=== PATIENT | female | born 1970 | race Caucasian/White ===

== ENCOUNTER 2018-11-03 09:55 | Emergency (ER) | payer OTHER ==
[~2018-11-03] VITALS: Ht 167.6 cm; Wt 90.7 kg
--- NOTE | 2018-11-03 10:21 | ER.PDOC ---
General Chief Complaint: Requesting Medical Care Stated Complaint: ANXIETY Time seen by MD: 10:05 Source: patient Exam Limitations: no limitations History of Present Illness Initial Comments Pt in town from [place] visiting her ill father. Ran out of Xanax for panic disorder. Rescheduled appt with PCP for November 06, PCP reportedly put her Rx on hold until he sees her. Reports severe anxiety today after being out of meds for 1 day. Timing/Duration: yesterday Severity: moderate Context: above. No suicidal thoughts or intent. No Depression. Substance Ingested: N/A Rescue Factor: N/A Prior symptoms/Treatment: Similar symptoms previous, Recenly Seen, Treated by Doctor Past Medical History Medical History: other (Anxiety/Panic disorder) Review of Systems Constitutional: no symptoms reported EENTM: no symptoms reported Respiratory: no symptoms reported Cardiovascular: no symptoms reported Gastrointestinal: no symptoms reported Genitourinary: no symptoms reported Skin: no symptoms reported Psychiatric/Neurological: anxiety Physical Exam General Appearance: Moderate distress EENT: No nystagmus, PERRLA, EOM's intact, NML ENT inspection, Pharynx nml, NML gag reflex Neck: Non-Tender, Full Range of Motion, Supple, Normal Inspection Respiratory: chest non-tender, lungs clear, normal breath sounds, no respiratory distress, no accessory muscle use Cardiovascular: Normal Peripheral Pulses, Regular Rate, Rhythm, No Edema, No Gallop, No JVD, No Murmur Gastrointestinal: Normal Bowel Sounds, No Organomegaly, No Pulsatile Mass, Non Tender, Soft Extremities: Non-Tender, Normal Range of Motion, No Evidence of Trauma, No Edema Neurological/Psychiatric: 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 NML as Tested, Oriented x 3, Responds to Pain, Anxious, Other (Anxious, tearful) Appearance/Memory/Insight: No Memory Impairment Behavior/Eye Contact/Speech: Cooperative, Good Eye Contact, Normal Speech Thoughts/Hallucinations: Normal Thought Pattern, No Apparent Hallucination Skin: Normal Color, Warm/Dry Results/Orders Results/Orders Vital Signs Date Time Temp Pulse Resp B/P (MAP) Pulse Ox O2 Delivery O2 Flow Rate FiO2 11/03/18 10:15 98.1 87 24 98.1 11/03/18 10:12 98.1 87 26 94 Room Air 98.1 Departure Time of Disposition: 10:22 Disposition: 01 HOME, SELF-CARE Impression: Primary Impression: Acute anxiety Condition: Stable Referrals: PCP,UNKNOWN (PCP) PRIMARY CARE PROVIDER Additional Instructions: Rx Xanax Duration or Time Spent with Pa: 10 MARIA LUZ DOTY MD Nov 03, 2018 10:21
[2018-11-03 10:36] VITALS: BP 166/105
== END 2018-11-03 10:35 | disposition home or self-care (01) ==
LOC: ER 09:55
DX: F41.9 Anxiety disorder, unspecified (principal)
CPT/HCPCS: 99284